=== PATIENT | female | born 1990 | race Caucasian/White ===

== ENCOUNTER 2020-10-06 02:13 | Emergency (ER) | payer OTHER ==
[~2020-10-06] VITALS: Ht 157.5 cm; Wt 70.3 kg
[2020-10-06 02:21] VITALS: BP 154/77
--- NOTE | 2020-10-06 02:24 | NUR ---
[facility] AT BEDSIDE
--- NOTE | 2020-10-06 02:24 | NUR ---
DR HERNANDEZ AT BEDSIDE
[2020-10-06] MEDS ORDERED: TDAP [DIPH/PERTUSSIS/TET] 0.5 ML VIAL IM ONE (02:32)
[2020-10-06] MEDS ORDERED: HYDROCODONE/APAP 5/325MG TABLET ONE (02:32)
[2020-10-06] MEDS: HYDROCODONE/APAP 5/325MG TABLET PO ONE (02:35)
[2020-10-06] MEDS: TDAP [DIPH/PERTUSSIS/TET] 0.5 ML VIAL IM ONE (02:36)
--- NOTE | 2020-10-06 03:36 | NUR ---
Patient discharged to home in stable condition. Written and verbal after care instructions given. Patient verbalizes understanding of instruction.
== END 2020-10-06 03:41 | disposition home or self-care (01) ==
LOC: ER 02:22
DX: S00.83XA Contusion of other part of head, initial encounter (principal); S60.222A Contusion of left hand, initial encounter; S00.511A Abrasion of lip, initial encounter; Y04.0XXA Assault by unarmed brawl or fight, initial encounter; Y93.89 Activity, other specified; Y92.89 Other specified places as the place of occurrence of the external cause; Y99.8 Other external cause status
CPT/HCPCS: 70450; 70486; 90471; 90715; 99285; A6403